=== PATIENT | female | born 1980 | race Caucasian/White ===

== ENCOUNTER 2024-03-22 20:51 | Emergency (ER) | payer BC, SELFPAY ==
[2024-03-22 20:53] VITALS: BP 137/78; PULSE 113; RESP 18; TEMP 37; O2SAT 95; BMI 31.2
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
[2024-03-22] MEDS: HYDROmorphone 0.5 mg/0.5 ml inj 1 MG IM (21:45)
[2024-03-22 21:46] VITALS: BP 102/75; PULSE 101; RESP 20; O2SAT 95
--- OUTSIDE RECORDS SUMMARY | 2024-03-22 21:50 | XMS_ITS | Encounter Summary ---
Author Organization [facility] Address [address] [address] Phone Care Team Providers Care Superintendent Oil Field Drilling Name Role Phone Lucina Laura MD Primary Care Provider [phone] Encounter Details Date Type Department Care Team (Late st Contact Info) Description 11/02/2022 Prep for Procedure [facility] OR [address] [place] [id number] Lucina Laura MD [address] [id number] Social History Tobacco Use Types Packs/Day Years Used Date Smoking Tobacco: Never Assessed Comments No Sex and Gender Information Value Date Recorded Sex Assigned at Not on file Legal Sex Female 4:27 PM CDT Gender Identity Not on file Sexual Orientation Not on file COVID-19 Exposure Response Date Recorded In the last 10 days, have yo u been in contact with someone who was confirmed or suspected to have Coronavirus/COVID-19? No / Unsure 11/04/2022 5:42 AM CDT documented as of this encounter Plan of Treatment Not on file documented as of this encounter Visit Diagnoses Not on filedocumented in this encounter Care Teams Superintendent Oil Field Drilling Relationship Specialty Start Date End Date Lucina Laura MD [address] [address] PCP - General ferryboat pilot 03/08/23 documented as of this encounter
--- OUTSIDE RECORDS SUMMARY | 2024-03-22 21:50 | XMS_ITS | Clinical Summary ---
Author Organization [facility] Address [address] [address] Phone Care Team Providers Care Hand Rug Braider Name Role Phone Lucina Laura MD Primary Care Provider [phone] Allergies No known active allergies Medications Multiple Vitamins-Redwood als (Multivitamin Women) Tablet Take 1 Tablet by mouth one time a day. Active Ferrous Sulfate (Iron) 325 (65 Fe) MG Tablet Take 1 Tablet by mouth one time a day. Active acetaminophen (Tylenol 8 Hour) 650 MG Tablet Extended Release Take 1 Tablet by mouth every six hours as needed for Pain. Limit acetaminophen to 4000 mg per day from all sources. 60 Tablet Active Surgical History Surgery Date Site/Laterality Comments GASTRIC BYPASS SURGERY LIGATE FALLOPIAN TUBE HYSTERECTOMY 11/04/2022 N/A Procedure: Robotic assisted laparoscopic hysterectomy with bilateral salpingectomy; Surgeon: Lucina Laura MD; Location: [facility] OR COLONOSCOPY 03/08/2023 N/A Procedure: COLONOSCOPY SCREENING; Surgeon: Fela Irizarry MD; Location: [facility] ENDOSCOPY Medical History Medical History Date Comments Anemia Menorrhagia Social History Tobacco Use Types Packs/Day Years Used Date Smoking Tobacco: Never Smokeless Tobacco: Never Tobacco Cessation:Counseling Given: Not Answered Alcohol Use Standard Drinks/Week Comments Yes 0 (1 standard drink = 0.6 oz pur e alcohol) occasional Comments No Sex and Gender Information Value Date Recorded Sex Assigned at Not on file Legal Sex Female 4:27 PM CDT Gender Identity Not on file Sexual Orientation Not on file Obstetrics History Last Filed Vital Signs Vital Sign Reading Time Taken Comments Blood Pressure 111/69 03/08/2023 11:22 AM CDT Pulse 61 03/08/2023 11:22 AM CDT Temperature 36.6 ??C (97.8 ??F) 03/08/2023 9:51 AM CD T Respiratory Rate 16 03/08/2023 11:22 AM CDT Oxygen Saturation 97% 03/08/2023 11:22 AM CDT Inhaled Oxygen Concentration - - Weight 108.9 kg (240 lb) 03/08/2023 9:13 AM CDT Height 182.9 cm (6') 03/08/2023 9:13 AM CDT Body Mass Index 32.55 03/08/2023 9:13 AM CDT Plan of Treatment Health Maintenance Due Date Last Done Comments MAMMO,SCREEN 1981 Hepatitis B Vaccine (Standin g Order) (1 of 3 - 19+ 3-dose series) 2000 PERTUSSIS (Standing Order) 2000 TETANUS (Standing Order) 2000 COVID-19 Vaccine (2023-2 5 season) 2024 Influenza Vaccine Seasonal (Standing Order) (#1) 2024 HPV Vaccine (Standing Order) Aged Out No longer eligible based on patient's age to complete this topic Pneumococcal/PCV20 Vaccine: Pediatrics (2-5 yrs) and At-Risk Patients (6-64 yrs) (Standing Order) Aged Out No longer eligible b ased on patient's age to complete this topic Insurance [facility] [place] [address] Advance Directives For more information, please contact: [phone] * Full Code (Latest Code Status on File) Date Activated Date Inactivated Comments 03/08/2023 9:06 AM 03/08/2023 4:00 PM * Full Code Date Activated Date Inactivated Comments 11/04/2022 5:47 AM 11/04/2022 9:09 PM Care Teams Hand Rug Braider Relationship Specialty Start Date End Date Lucina Laura MD [address] [address] PCP - General stone finisher 03/08/23
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
[2024-03-22 22:03] VITALS: BP 92/67; PULSE 82; RESP 18; O2SAT 96
== END 2024-03-22 22:07 | disposition home or self-care (01) ==
LOC: ED 21:48
PROVIDERS: Emergency Provider Family Medicine
DX: M54.9 Dorsalgia, unspecified (principal); M62.838 Other muscle spasm; M53.3 Sacrococcygeal disorders, not elsewhere classified
CPT/HCPCS: 96372; 99283; 99284; J1171